=== PATIENT | male | born 1990 | race Two or more races ===

== ENCOUNTER 2017-11-15 01:08 | Emergency (ER) | payer OTHER ==
[~2017-11-15] VITALS: Ht 172.7 cm; Wt 91.0 kg
[2017-11-15 02:15] VITALS: BP 135/88
== END 2017-11-15 07:38 | disposition home or self-care (01) ==
LOC: ER 01:08
DX: S29.011A Strain of muscle and tendon of front wall of thorax, initial encounter (principal); R03.0 Elevated blood-pressure reading, without diagnosis of hypertension; X58.XXXA Exposure to other specified factors, initial encounter; Y93.89 Activity, other specified; Y92.89 Other specified places as the place of occurrence of the external cause
CPT/HCPCS: 99283